=== PATIENT | male | born 1960 | race African-American/Black ===

== ENCOUNTER 2016-09-29 14:27 | Emergency (ER) | payer OTHER ==
[~2016-09-29] VITALS: Ht 177.8 cm; Wt 85.0 kg
[2016-09-29 14:29] VITALS: BP 161/99
== END 2016-09-29 19:18 | disposition home or self-care (01) ==
LOC: ER 14:36
DX: G89.29 Other chronic pain (principal); M54.5 Low back pain; X50.0XXA Overexertion from strenuous movement or load, initial encounter; Y93.89 Activity, other specified; Y92.241 Library as the place of occurrence of the external cause; Y99.0 Civilian activity done for income or pay
CPT/HCPCS: 99283; Z7610

== ENCOUNTER 2019-03-09 12:53 | Emergency (ER) | payer OTHER ==
[~2019-03-09] VITALS: Ht 177.8 cm; Wt 82.0 kg
[2019-03-09] MEDS ORDERED: CYCLOBENZAPRINE 10MG TABLET PO ONE (15:30)
[2019-03-09] MEDS ORDERED: IBUPROFEN 600MG TABLET PO STA (15:30)
[2019-03-09 15:41] VITALS: BP 136/90
== END 2019-03-09 17:07 | disposition home or self-care (01) ==
LOC: ER 12:53
DX: S39.012A Strain of muscle, fascia and tendon of lower back, initial encounter (principal); I10 Essential (primary) hypertension; V49.40XA Driver injured in collision with unspecified motor vehicles in traffic accident, initial encounter; Y93.9 Activity, unspecified; Y92.410 Unspecified street and highway as the place of occurrence of the external cause
CPT/HCPCS: 72110; 99283